=== PATIENT | female | born 1965 | race Caucasian/White ===

== ENCOUNTER 2019-05-05 20:49 | Inpatient (IN) | payer OTHER ==
[~2019-05-05] VITALS: Ht 167.6 cm; Wt 59.4 kg
--- NOTE | 2019-05-05 20:58 | NUR ---
ekg done on arrival
[2019-05-05] MEDS ORDERED: DEXTROSE 5%, 100ML IV ONE (21:30)
--- NOTE | 2019-05-05 21:46 | NUR ---
Patient BIB EMS from [facility]. Patient went to their ER for diarrhea and vomiting x2 days. Patient was dx with GI bleed. She received 3L NS, Rocephin, Protonix, Potassium, and Zofran. En route to [facility], EMS reports patient BGL to be in the 50s. EMS admin oral glucose which increased her BGL to 65. Patient c/o low quad abd pain 01/27. Recheck BGL. Medication administered per jun. Patient is lethargic and pale. She is in obvious pain. Respirations even and unlabored.
[2019-05-05] MEDS: PLEASE ENTER ALLERGIES MC SCH ×2 (22:00→23:15)
[2019-05-05] MEDS ORDERED: SODIUM CHLORIDE FLUSH 10ML SYR IVF ONE (22:00)
[2019-05-05] MEDS ORDERED: PRED1TAB19 PO (22:01)
[2019-05-05] MEDS ORDERED: LEVO25TA4 PO (22:01)
[2019-05-05 22:38] LABS: BASOPHILS # (AUTO) 0.02 x10^3/uL (0-0.1); BASOPHILS % (AUTO) 0 % (0-1); EOSINOPHILS % (AUTO) 0 % (1-7); LYMPHOCYTES # (AUTO) 1.48 x10^3/uL (1-3.4); LYMPHOCYTES % (AUTO) 16 % (22-44); MD NO; MEAN CORPUSCULAR HEMOGLOBIN 33.7 pg (27.0-34.8); MEAN CORPUSCULAR HGB CONC 33.6 g/dL (32.4-35.8); MEAN CORPUSCULAR VOLUME 100.4 fL (80-100); MONOCYTES # (AUTO) 0.58 x10^3/uL (0.2-0.8); MONOCYTES % (AUTO) 6 % (2-9); NEUTROPHILS # (AUTO) 7.51 x10^3/uL (1.8-6.8); NEUTROPHILS % (AUTO) 78 % (42-75); PLATELET COUNT 165 x10^3/uL (130-400); RED BLOOD COUNT 4.76 x10^6/uL (3.82-5.3); RED CELL DISTRIBUTION WIDTH 13.4 % (9.6-15.2)
[2019-05-05 22:50] LABS: ALANINE AMINOTRANSFERASE 54 U/L (12-78); ALBUMIN 2.7 g/dL (3.4-5.0); ANION GAP 13 mmol/L (5-15); CALCIUM 6.9 mg/dL (8.5-10.1); CHLORIDE 98 mmol/L (98-107); CREATININE 2.28 mg/dL (0.55-1.02)
[2019-05-05 22:51] LABS: INTERNATIONAL NORMALIZED RATIO 1.22 (0.93-1.1)
[2019-05-05 22:52] LABS: ALKALINE PHOSPHATASE 80 U/L (45-117); BILIRUBIN,TOTAL 0.2 mg/dL (0.2-1.0)
[2019-05-05] MEDS ORDERED: SODIUM CHLORIDE 0.9% 1,000 ML IV ONE (23:00)
[2019-05-05] MEDS ORDERED: METRONIDAZOLE PMX 500MG/100ML 100 ML ONE (23:05)
--- NOTE | 2019-05-05 23:07 | NUR ---
Pt states "it hurts my belly when i take flagyl." Referencing po pills. Denies any further rx to flagyl. Md aware and ok to give. Will monitor closely for adverse reaction.
[2019-05-05] MEDS ORDERED: D5%-0.45NACL+KCL 20MEQ 1,000 ML IV SCH (23:30)
[2019-05-05] MEDS ORDERED: MAGNESIUM SULFATE 1 GM, THIAMINE 100 MG, FOLIC ACID 1 MG, MVI ADULT 10 ML in SODIUM CHL... IV ONE (23:30)
[2019-05-05] MEDS ORDERED: METRONIDAZOLE PMX 500MG/100ML 100 ML IV ONE (23:30)
--- NOTE | 2019-05-06 00:06 | NUR ---
Patient resting in [facility]. She states she is still having low abd discomfort. Second IV established. Admin meds per jun. Awaiting D5 from pharmacy. Patient BGL trending down while not receiving D5. Q1 hour blood sugar sticks. CIWA performed. Patient remains tachycardic. No other alcohol withdrawal symptoms.
--- NOTE | 2019-05-06 00:29 | NUR ---
Called pharmacy to inquire on the status of the D5. Advised they will send over.
[2019-05-06] MEDS ORDERED: GLUCAGON 1 MG IM PRN ×2 (00:30→19:30)
[2019-05-06] MEDS ORDERED: LORazepam 1MG TABLET PO PRN ×4 (00:30)
[2019-05-06] MEDS ORDERED: hydrALAzine 20 MG/ML, 1ML IVPush PRN (00:30)
[2019-05-06] MEDS ORDERED: DEXTROSE 50%, 50ML SYRINGE IVPush PRN ×2 (00:30→19:30)
[2019-05-06] MEDS ORDERED: LORazepam 0.5MG TABLET PO PRN (00:30)
[2019-05-06] MEDS ORDERED: LORazepam 2 MG/ML, 1ML IV PRN ×5 (00:30)
[2019-05-06] MEDS ORDERED: FOLIC ACID 5 MG/ML IM ONE (00:30)
[2019-05-06] MEDS ORDERED: DEXTROSE 4 GM TAB.CHEW PO PRN ×2 (00:30→19:30)
[2019-05-06 00:46] LABS: HCT (SEDRATE) 47.7 % (34.6-47.8)
--- NOTE | 2019-05-06 01:34 | NUR ---
Patient resting in gurney. Patient BGL trending up with D5 and BP maintaining above 100 systolic with fluids. Patient remains tachycardic. Stool sample collected and sent to pharmacy.
--- NOTE | 2019-05-06 04:11 | NUR ---
Patient report given to BLANCA Muñoz. Patient to be transferred to room 551-2.
[2019-05-06] MEDS ORDERED: FOLIC ACID 1 MG TABLET PO ONE (04:30)
[2019-05-06 05:10] VITALS: BP 109/59
[2019-05-06] MEDS: METRONIDAZOLE PMX 500MG/100ML 100 ML IV SCH ×3 (06:59→23:00)
[2019-05-06] MEDS ORDERED: PANTOPRAZOLE 40 MG IV IVPush SCH (07:30)
[2019-05-06] MEDS ORDERED: CEFTRIAXONE PMX 1GM/50ML 50 ML IV SCH (08:00)
[2019-05-06] MEDS ORDERED: POTASSIUM CHLORIDE 40 MEQ in SODIUM CHLORIDE 0.9% 500 ML IV ONE (08:00)
[2019-05-06 08:46] LABS: MEAN CORPUSCULAR HEMOGLOBIN 33.8 pg (27.0-34.8); MEAN CORPUSCULAR HGB CONC 33.4 g/dL (32.4-35.8); MEAN CORPUSCULAR VOLUME 101.2 fL (80-100); PLATELET COUNT 136 x10^3/uL (130-400); RED BLOOD COUNT 4.49 x10^6/uL (3.82-5.3); RED CELL DISTRIBUTION WIDTH 13.6 % (9.6-15.2)
[2019-05-06 08:57] LABS: CALCIUM 7.1 mg/dL (8.5-10.1); CHLORIDE 105 mmol/L (98-107)
[2019-05-06] MEDS ORDERED: LEVOTHYROXINE 50 MCG TABLET PO SCH (09:00)
[2019-05-06] MEDS ORDERED: THIAMINE 200 MG in DEXTROSE 5% 50 ML IVPB ONE (09:00)
[2019-05-06 09:03] LABS: ALANINE AMINOTRANSFERASE 45 U/L (12-78); ALBUMIN 2.5 g/dL (3.4-5.0); ALKALINE PHOSPHATASE 75 U/L (45-117); ANION GAP 10 mmol/L (5-15); BILIRUBIN,TOTAL 0.3 mg/dL (0.2-1.0); TOTAL PROTEIN 5.5 g/dL (6.4-8.2)
[2019-05-06] MEDS ORDERED: DIGOXIN 0.25 MG/ML, 2ML ONE (09:22)
[2019-05-06 09:24] LABS: MD YES
[2019-05-06 09:26] LABS: BAND#(MANUAL) 2.28 x10^3/uL; BANDS%(MANUAL) 23 % (0-7); LYMPH#(MANUAL) 1.39 x10^3/uL (1-3.4); LYMPHS% (MANUAL) 14 % (22-44); METAMYELOCYTES% (MANUAL) 1 % (0-1); MONOS% (MANUAL) 4 % (2-9); SEG#(MANUAL) 5.74 x10^3/uL (1.8-6.8); SEGS% (MANUAL) 58 % (42-75)
[2019-05-06] MEDS: PANTOPRAZOLE 40 MG IV IVPush SCH ×2 (09:26→21:01)
[2019-05-06 09:27] LABS: <PLATELET ESTIMATE> ADEQUATE; <PLT MORPHOLOGY> NORMAL PLT MORPH
[2019-05-06] MEDS: SODIUM CHLORIDE FLUSH 10ML SYR IVF SCH ×3 (09:31→21:01)
[2019-05-06] MEDS: THIAMINE 200 MG, MVI ADULT 10 ML, FOLIC ACID 1 MG in D5%-0.9% NACL 1,000 ML IV SCH (11:01)
[2019-05-06 20:00] VITALS: BP 105/72
[2019-05-06] MEDS: D5%-0.45NACL+KCL 40MEQ 1,000 ML IV SCH (21:01)
[2019-05-07 02:14] VITALS: BP 103/72
[2019-05-07] MEDS: morphine SULFATE 10 MG/ML, 1ML IVPush PRN ×2 (03:06→20:01)
[2019-05-07 05:05] LABS: BASOPHILS # (AUTO) 0.01 x10^3/uL (0-0.1); BASOPHILS % (AUTO) 0 % (0-1); EOSINOPHILS # (AUTO) 0.02 x10^3/uL (0-0.4); EOSINOPHILS % (AUTO) 0 % (1-7); LYMPHOCYTES # (AUTO) 0.69 x10^3/uL (1-3.4); LYMPHOCYTES % (AUTO) 10 % (22-44); MD NO; MEAN CORPUSCULAR HEMOGLOBIN 34.1 pg (27.0-34.8); MEAN CORPUSCULAR HGB CONC 33.7 g/dL (32.4-35.8); MEAN CORPUSCULAR VOLUME 101.4 fL (80-100); MEAN PLATELET VOLUME 8.7 fL (7.4-10.4); MONOCYTES # (AUTO) 0.39 x10^3/uL (0.2-0.8); MONOCYTES % (AUTO) 6 % (2-9); NEUTROPHILS # (AUTO) 5.94 x10^3/uL (1.8-6.8); NEUTROPHILS % (AUTO) 84 % (42-75); PLATELET COUNT 113 x10^3/uL (130-400); RED BLOOD COUNT 3.94 x10^6/uL (3.82-5.3); RED CELL DISTRIBUTION WIDTH 13.9 % (9.6-15.2)
[2019-05-07 05:06] LABS: ALANINE AMINOTRANSFERASE 35 U/L (12-78); ALBUMIN 2.2 g/dL (3.4-5.0); ANION GAP 9 mmol/L (5-15); CALCIUM 7.2 mg/dL (8.5-10.1); CHLORIDE 108 mmol/L (98-107); CREATININE 0.96 mg/dL (0.55-1.02)
[2019-05-07 05:16] LABS: ALKALINE PHOSPHATASE 76 U/L (45-117); BILIRUBIN,TOTAL 0.3 mg/dL (0.2-1.0); TOTAL PROTEIN 5.4 g/dL (6.4-8.2)
[2019-05-07] MEDS: LEVOTHYROXINE 50 MCG TABLET PO SCH (05:58)
[2019-05-07 07:35] VITALS: BP 96/67
[2019-05-07] MEDS: D5%-0.45NACL+KCL 40MEQ 1,000 ML IV SCH ×2 (08:08→20:57)
[2019-05-07] MEDS: PANTOPRAZOLE 40 MG IV IVPush SCH ×2 (08:09→22:35)
[2019-05-07] MEDS: SODIUM CHLORIDE FLUSH 10ML SYR IVF SCH ×4 (09:00→22:35)
[2019-05-07] MEDS: AMPICILLIN/SULBACTAM 1,500 MG in SODIUM CHLORIDE 0.9% 50 ML IV SCH ×3 (09:35→20:20)
[2019-05-07] MEDS: GUAIFENESIN 200 MG TABLET PO SCH ×3 (11:25→22:35)
[2019-05-07] MEDS: THIAMINE 200 MG, MVI ADULT 10 ML, FOLIC ACID 1 MG in D5%-0.9% NACL 1,000 ML IV SCH (11:26)
[2019-05-07 12:23] LABS: RAPID INFLUENZA A Negative (Negative); RAPID INFLUENZA B Negative (Negative)
[2019-05-07 17:47] LABS: CLOSTRIDIUM DIFFICILE ANTIGEN NEGATIVE; CLOSTRIDIUM DIFFICILE TOXIN NEGATIVE (Negative)
[2019-05-07 19:08] VITALS: BP 107/74
[2019-05-08 00:58] VITALS: BP 102/71
[2019-05-08] MEDS: AMPICILLIN/SULBACTAM 1,500 MG in SODIUM CHLORIDE 0.9% 50 ML IV SCH ×2 (01:50→08:10)
[2019-05-08 05:14] LABS: MEAN CORPUSCULAR HEMOGLOBIN 33.4 pg (27.0-34.8); MEAN PLATELET VOLUME 8.9 fL (7.4-10.4); PLATELET COUNT 100 x10^3/uL (130-400); RED CELL DISTRIBUTION WIDTH 13.8 % (9.6-15.2)
[2019-05-08 05:27] LABS: ALBUMIN 2.1 g/dL (3.4-5.0); ANION GAP 7 mmol/L (5-15); CALCIUM 6.7 mg/dL (8.5-10.1); CHLORIDE 107 mmol/L (98-107)
[2019-05-08 05:33] LABS: ALANINE AMINOTRANSFERASE 27 U/L (12-78); ALKALINE PHOSPHATASE 82 U/L (45-117); BILIRUBIN,TOTAL 0.5 mg/dL (0.2-1.0); CREATININE 0.69 mg/dL (0.55-1.02); TOTAL PROTEIN 5.2 g/dL (6.4-8.2)
[2019-05-08 05:43] LABS: BASOPHILS # (AUTO) 0.01 x10^3/uL (0-0.1); BASOPHILS % (AUTO) 0 % (0-1); EOSINOPHILS # (AUTO) 0.13 x10^3/uL (0-0.4); EOSINOPHILS % (AUTO) 2 % (1-7); LYMPHOCYTES # (AUTO) 0.78 x10^3/uL (1-3.4); LYMPHOCYTES % (AUTO) 12 % (22-44); MD SCAN; MONOCYTES # (AUTO) 0.44 x10^3/uL (0.2-0.8); MONOCYTES % (AUTO) 7 % (2-9); NEUTROPHILS # (AUTO) 5.23 x10^3/uL (1.8-6.8); NEUTROPHILS % (AUTO) 79 % (42-75)
[2019-05-08] MEDS: GUAIFENESIN 200 MG TABLET PO SCH ×4 (06:27→22:58)
[2019-05-08] MEDS: LEVOTHYROXINE 50 MCG TABLET PO SCH (06:27)
[2019-05-08 06:54] VITALS: BP 106/72
[2019-05-08] MEDS: PANTOPRAZOLE 40 MG IV IVPush SCH (08:10)
[2019-05-08] MEDS: SODIUM CHLORIDE FLUSH 10ML SYR IVF SCH ×4 (08:10→22:58)
[2019-05-08] MEDS: PANTOPROZOLE 40MG TABLET PO SCH (08:30)
[2019-05-08] MEDS ORDERED: POTASSIUM PHOSPHATE 44 MEQ in SODIUM CHLORIDE 0.9% 500 ML IV ONE (09:00)
[2019-05-08] MEDS: MULTIVITAMIN 1 TABLET PO SCH (09:26)
[2019-05-08] MEDS: D5%-0.45NACL+KCL 40MEQ 1,000 ML IV SCH (09:26)
[2019-05-08] MEDS: AMOXICILLIN/CLAV 875-125MG TABLET PO SCH ×2 (09:26→22:58)
[2019-05-08] MEDS: OXYcodone IR 5MG TABLET PO PRN (09:27)
[2019-05-08] MEDS: THIAMINE 100MG TABLET PO SCH (09:27)
[2019-05-08] MEDS: FOLIC ACID 1 MG TABLET PO SCH (09:27)
[2019-05-08 13:35] VITALS: BP 103/71
[2019-05-08] MEDS ORDERED: POTASSIUM PHOSPHATE 22 MEQ in SODIUM CHLORIDE 0.9% 500 ML IV ONE (16:30)
[2019-05-08] MEDS ORDERED: MAGNESIUM SULFATE PMX 2GM/50ML 50 ML IV ONE (16:30)
[2019-05-08 20:00] VITALS: BP 106/70
[2019-05-09 00:58] VITALS: BP 92/62
[2019-05-09] MEDS: GUAIFENESIN 200 MG TABLET PO SCH ×3 (05:46→15:40)
[2019-05-09] MEDS: PANTOPROZOLE 40MG TABLET PO SCH (05:46)
[2019-05-09] MEDS: LEVOTHYROXINE 25 MCG TABLET PO SCH (05:46)
[2019-05-09 06:15] LABS: ALANINE AMINOTRANSFERASE 29 U/L (12-78); ALBUMIN 2.2 g/dL (3.4-5.0); ANION GAP 8 mmol/L (5-15); CALCIUM 7.5 mg/dL (8.5-10.1); CHLORIDE 104 mmol/L (98-107); CREATININE 0.56 mg/dL (0.55-1.02)
[2019-05-09 06:17] LABS: ALKALINE PHOSPHATASE 91 U/L (45-117); BILIRUBIN,TOTAL 0.8 mg/dL (0.2-1.0); TOTAL PROTEIN 5.7 g/dL (6.4-8.2)
[2019-05-09] MEDS: D5%-0.45NACL+KCL 40MEQ 1,000 ML IV SCH (07:00)
[2019-05-09 07:21] VITALS: BP 104/72
[2019-05-09] MEDS: AMOXICILLIN/CLAV 875-125MG TABLET PO SCH (08:47)
[2019-05-09] MEDS: SODIUM CHLORIDE FLUSH 10ML SYR IVF SCH ×3 (08:47→21:00)
[2019-05-09] MEDS: MULTIVITAMIN 1 TABLET PO SCH (08:48)
[2019-05-09] MEDS: OXYcodone IR 5MG TABLET PO PRN ×2 (08:48→15:41)
[2019-05-09] MEDS: FOLIC ACID 1 MG TABLET PO SCH (08:48)
[2019-05-09] MEDS: THIAMINE 100MG TABLET PO SCH (08:48)
[2019-05-09 09:01] LABS: HCT (SEDRATE) 38.5 % (34.6-47.8)
[2019-05-09 12:54] VITALS: BP 110/77
[2019-05-09 19:14] VITALS: BP 103/73
[2019-05-10] MEDS ORDERED: OMNIPAQUE 350 MG/ML, 100ML BOTTLE ONE (00:28)
[2019-05-10] MEDS: GUAIFENESIN 200 MG TABLET PO SCH ×5 (00:38→19:59)
[2019-05-10] MEDS: SODIUM CHLORIDE FLUSH 10ML SYR IVF SCH ×5 (00:39→19:59)
[2019-05-10] MEDS: D5%-0.45NACL+KCL 40MEQ 1,000 ML IV SCH (01:53)
[2019-05-10 02:06] VITALS: BP 108/71
[2019-05-10] MEDS: PANTOPROZOLE 40MG TABLET PO SCH (05:50)
[2019-05-10] MEDS: LEVOTHYROXINE 25 MCG TABLET PO SCH (05:50)
[2019-05-10 05:51] LABS: BASOPHILS # (AUTO) 0.02 x10^3/uL (0-0.1); BASOPHILS % (AUTO) 0 % (0-1); EOSINOPHILS # (AUTO) 0.19 x10^3/uL (0-0.4); EOSINOPHILS % (AUTO) 3 % (1-7); LYMPHOCYTES # (AUTO) 0.94 x10^3/uL (1-3.4); LYMPHOCYTES % (AUTO) 17 % (22-44); MD NO; MEAN CORPUSCULAR HEMOGLOBIN 33.6 pg (27.0-34.8); MEAN CORPUSCULAR HGB CONC 33.2 g/dL (32.4-35.8); MEAN CORPUSCULAR VOLUME 101.2 fL (80-100); MEAN PLATELET VOLUME 8.4 fL (7.4-10.4); MONOCYTES # (AUTO) 0.79 x10^3/uL (0.2-0.8); MONOCYTES % (AUTO) 14 % (2-9); NEUTROPHILS % (AUTO) 65 % (42-75); PLATELET COUNT 138 x10^3/uL (130-400); RED BLOOD COUNT 3.95 x10^6/uL (3.82-5.3); RED CELL DISTRIBUTION WIDTH 13.8 % (9.6-15.2)
[2019-05-10 06:03] LABS: ALBUMIN 2.2 g/dL (3.4-5.0); ANION GAP 7 mmol/L (5-15); CALCIUM 7.5 mg/dL (8.5-10.1); CHLORIDE 103 mmol/L (98-107)
[2019-05-10 06:08] LABS: ALANINE AMINOTRANSFERASE 33 U/L (12-78); ALKALINE PHOSPHATASE 86 U/L (45-117); BILIRUBIN,TOTAL 0.5 mg/dL (0.2-1.0); CREATININE 0.54 mg/dL (0.55-1.02); TOTAL PROTEIN 5.6 g/dL (6.4-8.2)
[2019-05-10 06:57] VITALS: BP 124/83
[2019-05-10] MEDS: POTASSIUM CHLORIDE 10 MEQ in D5%-0.45% NACL 1,000 ML IV SCH ×2 (09:10→19:40)
[2019-05-10] MEDS: FOLIC ACID 1 MG TABLET PO SCH (09:11)
[2019-05-10] MEDS: THIAMINE 100MG TABLET PO SCH (09:11)
[2019-05-10] MEDS: MULTIVITAMIN 1 TABLET PO SCH (09:11)
[2019-05-10 12:54] VITALS: BP 132/90
[2019-05-10] MEDS ORDERED: DEXTROSE 50%, 50ML VIAL IVPush ONE (15:00)
[2019-05-10 19:08] VITALS: BP 124/85
[2019-05-11 03:59] VITALS: BP 129/88
[2019-05-11 05:23] LABS: ALBUMIN 2.5 g/dL (3.4-5.0); ANION GAP 6 mmol/L (5-15); CALCIUM 7.8 mg/dL (8.5-10.1); CHLORIDE 101 mmol/L (98-107)
[2019-05-11 05:27] LABS: ALANINE AMINOTRANSFERASE 32 U/L (12-78); ALKALINE PHOSPHATASE 98 U/L (45-117); BILIRUBIN,TOTAL 0.7 mg/dL (0.2-1.0); TOTAL PROTEIN 6.1 g/dL (6.4-8.2)
[2019-05-11] MEDS: LEVOTHYROXINE 25 MCG TABLET PO SCH (05:34)
[2019-05-11] MEDS: POTASSIUM CHLORIDE 10 MEQ in D5%-0.45% NACL 1,000 ML IV SCH ×2 (05:34→20:00)
[2019-05-11] MEDS: GUAIFENESIN 200 MG TABLET PO SCH ×4 (05:34→20:10)
[2019-05-11 07:06] VITALS: BP 132/91
[2019-05-11] MEDS: SODIUM CHLORIDE FLUSH 10ML SYR IVF SCH ×4 (08:58→20:10)
[2019-05-11] MEDS: THIAMINE 100MG TABLET PO SCH (08:58)
[2019-05-11] MEDS: MULTIVITAMIN 1 TABLET PO SCH (08:59)
[2019-05-11] MEDS: FOLIC ACID 1 MG TABLET PO SCH (08:59)
[2019-05-11 13:37] VITALS: BP 129/80
[2019-05-11 19:46] VITALS: BP 106/73
[2019-05-12 00:48] VITALS: BP 105/75
[2019-05-12] MEDS: POTASSIUM CHLORIDE 10 MEQ in D5%-0.45% NACL 1,000 ML IV SCH ×2 (05:38→17:50)
[2019-05-12] MEDS: LEVOTHYROXINE 25 MCG TABLET PO SCH (05:39)
[2019-05-12] MEDS: GUAIFENESIN 200 MG TABLET PO SCH ×4 (05:39→20:04)
[2019-05-12 06:42] LABS: ALBUMIN 2.5 g/dL (3.4-5.0); ANION GAP 8 mmol/L (5-15); CALCIUM 7.8 mg/dL (8.5-10.1); CHLORIDE 101 mmol/L (98-107)
[2019-05-12 06:47] LABS: ALANINE AMINOTRANSFERASE 29 U/L (12-78); ALKALINE PHOSPHATASE 100 U/L (45-117); BILIRUBIN,TOTAL 1.2 mg/dL (0.2-1.0); CREATININE 0.69 mg/dL (0.55-1.02); TOTAL PROTEIN 6.2 g/dL (6.4-8.2)
[2019-05-12] MEDS: SODIUM CHLORIDE FLUSH 10ML SYR IVF SCH ×4 (09:00→20:04)
[2019-05-12] MEDS: FOLIC ACID 1 MG TABLET PO SCH (09:15)
[2019-05-12] MEDS: THIAMINE 100MG TABLET PO SCH (09:15)
[2019-05-12] MEDS: MULTIVITAMIN 1 TABLET PO SCH (09:15)
[2019-05-12 09:34] VITALS: BP 113/70
[2019-05-12 14:00] VITALS: BP 100/70
[2019-05-12 20:48] VITALS: BP 94/65
[2019-05-13 01:04] VITALS: BP 97/68
[2019-05-13] MEDS: POTASSIUM CHLORIDE 10 MEQ in D5%-0.45% NACL 1,000 ML IV SCH (03:17)
[2019-05-13] MEDS: GUAIFENESIN 200 MG TABLET PO SCH (05:44)
[2019-05-13] MEDS: LEVOTHYROXINE 25 MCG TABLET PO SCH (05:44)
[2019-05-13 06:15] LABS: CHLORIDE 103 mmol/L (98-107)
[2019-05-13 06:32] LABS: ALANINE AMINOTRANSFERASE 28 U/L (12-78); ALBUMIN 2.4 g/dL (3.4-5.0); ALKALINE PHOSPHATASE 90 U/L (45-117); ANION GAP 4 mmol/L (5-15); BILIRUBIN,TOTAL 0.7 mg/dL (0.2-1.0); CALCIUM 7.8 mg/dL (8.5-10.1); CREATININE 0.66 mg/dL (0.55-1.02); TOTAL PROTEIN 6.1 g/dL (6.4-8.2)
[2019-05-13 07:53] VITALS: BP 109/57
[2019-05-13] MEDS ORDERED: THIA100T67 PO (08:46)
[2019-05-13] MEDS ORDERED: GUAI200T37 PO (08:46)
[2019-05-13] MEDS ORDERED: FOLI-17 PO (08:46)
[2019-05-13] MEDS: SODIUM CHLORIDE FLUSH 10ML SYR IVF SCH ×2 (09:00→09:52)
[2019-05-13] MEDS: MULTIVITAMIN 1 TABLET PO SCH (09:52)
[2019-05-13] MEDS: THIAMINE 100MG TABLET PO SCH (09:52)
[2019-05-13] MEDS: FOLIC ACID 1 MG TABLET PO SCH (09:52)
== END 2019-05-13 10:32 | disposition home or self-care (01) | DRG 871 ==
LOC: ED 23:34 → EDIP 05-06 00:13 → CCU 05-06 04:21 → 3N 05-06 18:24
PROVIDERS: ADMIT Hospitalist; ATTEND Internal Medicine
PROC: HZ2ZZZZ Detoxification Services for Substance Abuse Treatment (ICD-10-PCS; principal; 2019-05-06)
DX: A41.9 Sepsis, unspecified organism (principal); N17.0 Acute kidney failure with tubular necrosis; J96.01 Acute respiratory failure with hypoxia; E87.2 Acidosis; E87.0 Hyperosmolality and hypernatremia; E87.1 Hypo-osmolality and hyponatremia; K92.1 Melena; K86.3 Pseudocyst of pancreas; A09 Infectious gastroenteritis and colitis, unspecified; E83.51 Hypocalcemia; D69.6 Thrombocytopenia, unspecified; D75.89 Other specified diseases of blood and blood-forming organs; E03.9 Hypothyroidism, unspecified; E16.2 Hypoglycemia, unspecified; E83.42 Hypomagnesemia; E83.52 Hypercalcemia; E87.6 Hypokalemia; E88.09 Other disorders of plasma-protein metabolism, not elsewhere classified; I10 Essential (primary) hypertension; K70.10 Alcoholic hepatitis without ascites; Y90.7 Blood alcohol level of 200-239 mg/100 ml; Z88.3 Allergy status to other anti-infective agents; Z90.710 Acquired absence of both cervix and uterus; Z88.8 Allergy status to other drugs, medicaments and biological substances; F10.10 Alcohol abuse, uncomplicated; Y90.9 Presence of alcohol in blood, level not specified
CPT/HCPCS: 36415; 87046; 87400; 96374; 96375; 99285; J7042; 71045; 71260; 74177; 80053; 80307; 82962; 83605; 83735; 84100; 84443; 85025; 85610; 85651; 85730; 86140; 86850; 86900; 87040; 87081; 87324; 93005; G0378; J0696; J3411; J3475; J3480; Q9967; C9113; J0295; J2270; J7030; J7040